=== PATIENT | male | born 1990 | race Caucasian/White ===

== ENCOUNTER 2019-12-14 23:53 | Emergency (ER) | payer BC ==
[~2019-12-14] VITALS: Ht 175.3 cm; Wt 59.0 kg
[~2019-12-14 23:53] MED LIST: NOHOMEMEDICATIONS
[2019-12-15 02:35] VITALS: BP 147/90
== END 2019-12-15 02:35 | disposition home or self-care (01) ==
LOC: ER 23:53
DX: S61.214A Laceration without foreign body of right ring finger without damage to nail, initial encounter (principal); W25.XXXA Contact with sharp glass, initial encounter; Y93.G1 Activity, food preparation and clean up; Y92.89 Other specified places as the place of occurrence of the external cause; Y99.9 Unspecified external cause status

== ENCOUNTER 2019-12-27 17:24 | Emergency (ER) | payer BC, OTHER ==
[~2019-12-27] VITALS: Ht 175.3 cm; Wt 63.5 kg
[2019-12-27 17:31] VITALS: BP 156/95
== END 2019-12-27 17:40 | disposition home or self-care (01) ==
LOC: ER 17:24
DX: S61.214D Laceration without foreign body of right ring finger without damage to nail, subsequent encounter (principal); W25.XXXD Contact with sharp glass, subsequent encounter

== ENCOUNTER 2021-06-23 17:32 | Emergency (ER) | payer OTHER ==
[~2021-06-23] VITALS: Ht 170.2 cm; Wt 52.2 kg
[2021-06-23] MEDS ORDERED: FLEXERIL PO (18:32)
[2021-06-23 18:56] VITALS: BP 166/90
== END 2021-06-23 18:56 | disposition home or self-care (01) ==
LOC: ER 17:32
DX: M25.561 Pain in right knee (principal); Z86.16 Personal history of COVID-19